=== PATIENT | male | born 1990 | race Hispanic/Latino ===

== ENCOUNTER 2018-08-26 17:45 | Emergency (ER) | payer OTHER ==
[2018-08-26] MEDS: ONDANSETRON 4MG/2ML VIAL (J2405) IV (18:51)
[2018-08-26] MEDS: KETOROLAC 30 MG/ML VIAL (J1885) IV (18:51)
[2018-08-26] MEDS: NS 1,000 ML IV (18:51)
[2018-08-26] MEDS: CEPHALEXIN 500 MG CAP PO (20:30)
== END 2018-08-26 20:36 | disposition home or self-care (01) ==
LOC: M ED 17:45
DX: S08.0XXA Avulsion of scalp, initial encounter (principal); S01.01XA Laceration without foreign body of scalp, initial encounter; V43.52XA Car driver injured in collision with other type car in traffic accident, initial encounter; Y92.410 Unspecified street and highway as the place of occurrence of the external cause; Y93.9 Activity, unspecified; Y99.9 Unspecified external cause status
CPT/HCPCS: J2405